=== PATIENT | female | born 1935 | race Caucasian/White ===

== ENCOUNTER 2016-10-16 07:23 | Outpatient (CLI) | payer MEDICARE ==
[~2016-10-16] VITALS: Ht 152.4 cm; Wt 62.7 kg
--- NOTE | ~2016-10-16 | HEMODYNAMI ---
PATIENT:CON ANN MEDICAL RECORD: [id number] : 37 LOCATION:[facility] ADMISSION DATE: 10/16/16 Generatedon:10/16/201610:50 Patient name: CON ANN Patient #: [id number] : 1935 Date of study: 10/16/2016 Page: Of Hemodynamic Procedure Report Patient Data Patient Demographics Procedure consent was obtained First Name: CON Gender: Female Last Name: SETH : 1935 Patient #: [id number] Age: 81 year(s) Race: SSN: [id number] Additional ID: [id number] Contact details Address: [facility] State: [place] City: [place] Zip code: [address] Admission Admission Data Admission Date: 10/16/2016 Admission Time: 7:23 Arrival Date: 10/16/2016 Arrival Time: 10:00 Admit Source: Other Insurance Payor: Medicare Height (in.): 6 BSA: 0.3 (m2) Height (cm.): 15.24 BMI: 2714.63 (kg/m2) Weight (lbs.): 139 Weight (kg.): 63.05 Lab Results Lab Result Date: 10/16/2016 Lab Result Time: 0:00 Biochemistry Name Units Result Min Max BUN mg/dl 35 --(----)-* 7 18 Creatinine mg/dl 1.5 --(----)-* 0.6 1.3 CBC Name Units Result Min Max Hemoglobin g/dl 13.1 -*(----)-- 13.5 17.5 Procedure Procedure Types Cath Procedure Diagnostic Procedure [facility] w/Coronaries w/Grafts FFR/IVUS Intra-Coronary IVUS Initial Miscellaneous Procedures Moderate Sedation up to 45 minutes Procedure Description Procedure Date Procedure Date: 10/16/2016 Procedure Start Time: 10:26 Procedure End Time: 10:46 Procedure Staff Name Function Washington Calle MD Performing Physician Belia Vazquez RT Scrub Julius Leblanc RN Nurse Day Hendricks RT Monitor Indication Cardiomyopathy Procedure Data Cath Procedure Fluoroscopy Diagnostic fluoroscopy Total fluoroscopy Time: 5.7 time: 5.7 min min Diagnostic fluoroscopy Total fluoroscopy dose: 784 dose: 784 mGy mGy Contrast Material Contrast Material Type Amount (ml) Isovue 370 112 Entry Location Entry Primary Successful Side Size Upsize Upsize Entry Closure Succes sful Closure Location (Fr) 1 (Fr) 2 (Fr) Remarks Device Remarks Femoral Right 5 Fr 6 Fr Exoseal artery Short Estimated blood loss: 5 ml Diagnostic catheters Device Type Used For End Catheter Placement Cordis 5Fr Pigtail LV Angiography Catheter (MP) Cordis 5Fr JL 4.0 Left Coronary Catheter (MP) Angiography Cordis 5Fr 3DRC Catheter Right Coronary (MP) Angiography Diagnostic Infinity 5Fr Multi-vessel AR 2 MOD catheter Angiography Procedure Complications No complications Procedure Medications Medication Administration Route Dosage Oxygen NC 2 l/min Lidocaine 2% added to field 20 Heparin Flush Bag added to field 2 bags (1000units/500ml NS) 0.9% NaCl I.V. 100 ml/hr Versed I.V. 1 mg Fentanyl I.V. 50 mcg Versed I.V. 1 mg Fentanyl I.V. 50 mcg Heparin Bolus I.V. 4000 units Integrilin (Bolus I.V. 5.6 ml 2mg/ml) Plavix P.O. 600 mg Hemodynamics Rest BSA: 0.3 (m2) HGB: 13.1 (g/dl) O2 Consumption: Estimated: 24.49 (ml/min) O2 Cons umption indexed: Estimated:81.63 (ml/min/m) Heart Rate: 48 (bpm) Pressure Samples Time Site Value (mmHg) Purpose Heart Use Rate(bpm) 10:29 LV 74/9,11 Snapshot 70 Snapshots Pre Cath Intra NCS Post Cath Vital Signs Time Heart Resp SPO2 NIBP (mmHg) Rhythm Pain Sedation Rate (ipm) (%) Status Level (bpm) 9:46:48 73 16 97 182/80(134) NSR 0 (11) 10(A) , No pain 9:51:21 69 16 100 174/77(132) NSR 0 (11) 10(A) , No pain 9:55:49 69 18 100 167/72(131) NSR 0 (11) 10(A) , No pain 10:00:19 69 18 100 169/72(125) NSR 0 (11) 10(A) , No pain 10:04:41 69 19 96 157/75(121) NSR 0 (11) 10(A) , No pain 10:09:10 69 20 98 155/62(124) NSR 0 (11) 10(A) , No pain 10:13:36 69 18 99 158/64(113) NSR 0 (11) 10(A) , No pain 10:17:56 69 16 97 146/64(114) NSR 0 (11) 9(A) , No pain 10:22:19 69 17 94 130/60(107) NSR 0 (11) 9(A) , No pain 10:27:26 84 16 97 132/55(94) NSR 0 (11) 9(A) , No pain 10:31:48 69 16 95 132/59(95) NSR 0 (11) 9(A) , No pain 10:36:06 69 16 95 123/52(96) NSR 0 (11) 9(A) , No pain 10:40:18 69 17 94 110/45(82) NSR 0 (11) 9(A) , No pain 10:44:38 69 16 98 109/44(77) NSR 0 (11) 9(A) , No pain 10:48:56 69 16 94 107/44(83) NSR 0 (11) 10(A) , No pain Medications Time Medication Route Dose Verified Delivered Reason Notes Effectiveness by by 9:48:32 Oxygen NC 2 [place] used for l/min uLc Leblanc RN procedure 9:48:38 Lidocaine 2% added 20ml [place] for local to vial Luc Calle MD anesthetic field 9:48:45 Heparin Flush added 2 [place]arosa used for Bag to bags Luc Calle MD procedure (1000units/500ml field NS) 9:48:55 0.9% NaCl I.V. 100 [place] Gallardoie Per physician ml/hr Luc Leblanc RN 10:11:39 Versed I.V. 1 mg [place] for sedation Luc Leblanc RN 10:11:45 Fentanyl I.V. 50 [place]ie for sedation mcg Luc Leblanc RN 10:27:54 Versed I.V. 1 mg [place] for sedation Luc Leblanc RN 10:27:59 Fentanyl I.V. 50 [place] for sedation mcg Luc Leblanc RN 10:35:18 Heparin Bolus I.V. 4000 [place] for verifi ed units Luc Leblanc RN anticoagulation with dr calle 10:43:32 Integrilin I.V. 5.6 [place] for Wasted (Bolus 2mg/ml) ml Luc Leblanc RN antiplatelet 4.4 ml therapy of vial 10:49:09 Plavix P.O. 600 [place] for mg Luc Leblanc RN antiplatelet therapy Procedure Log Time Note 9:32:26 Patient Height : 15.24 cm 9:32:31 Patient Weight : 63.05 kg 9:32:32 Admit Source: Other 9:32:36 Arrival Date: 10/16/2016 10:00:00 AM 9:32:42 Insurance Payor : Medicare 9:33:36 Diagnostic Cath Status : Elective 9:35:47 Lab Result : Creatinine 1.5 mg/dl 9:35:47 Lab Result : BUN 35 mg/dl 9:35:47 Lab Result : Hemoglobin 13.1 g/dl 9:35:54 Day Hendricks RT(R) sent for patient. Start room use. 9:35:56 Time tracking: Regular hours 9:36:01 Plan of Care:Hemodynamics will remain stable., Cardiac rhythm will remain stable., Comfort level will be maintained., Respiratory function will remain adequate., Patient/ family verbilizes understanding of procedure., Procedure tolerated without complication., Recovers from procedure without complications.. 9:36:08 Use device set Femoral Dx 9:36:11 Acist Syringe opened to sterile field. 9:36:11 Bag Decanter opened to sterile field. 9:36:11 Medline Cath Pack opened to sterile field. 9:36:12 Terumo 5Fr [place] Sheath opened to sterile field. 9:36:12 St Adam 260cm J .035 wire opened to sterile field. 9:36:14 Acist Hand Control opened to sterile field. 9:36:14 Acist Manifold opened to sterile field. 9:36:15 Diagnostic Infinity 5Fr Multipack catheter opened to sterile field. 9:36:16 Tegaderm 4 x 4 opened to sterile field. 9:39:52 Patient received from Pre/Post Procedure Room to CCL 2 Alert and oriented. Tansferred to table in Supine position. 9:39:54 Warm blankets applied, and mu hugger turned on for patient comfort. 9:39:54 Correct patient and procedure confirmed by team. 9:39:56 Signed procedure consent form obtained from patient. 9:39:56 ECG and BP/O2 sat monitors applied to patient. 9:39:58 Full Disclosure recording started 9:43:44 H&P Date Dictated: 10/10/2016 Within 30 days and on chart., H&P Addendum completed by physician on day of procedure. (MUST COMPLETE FOR ALL OUTPATIENTS). 9:43:47 Pre-procedure instructions explained to patient. 9:43:48 Family in waiting room. 9:43:55 Is the patient allergic to Iodine/contrast media? No. 9:44:02 Is patient on blood thinner?No 9:44:07 Patient diabetic? Yes. 9:44:08 If diabetic: On Metformin? No 9:44:14 Snore? Yes 9:44:17 Sleep apnea? No 9:44:19 Sticks out tongue? Yes 9:44:25 Dentures? Yes in tight 9:44:30 Previous problem with sedation/anesthesia? No ? 9:44:40 Patient pain scale 0/10 ?. 9:44:51 IV patent on arrival in left forearm with 0.9% NaCl at KVO. 9:44:59 Lab results completed and on chart. 9:45:23 Vital chart was started 9:45:54 Baseline sample Acquired. 9:46:04 Right groin area was prepped with chlora-prep and draped in sterile fashion 9:46:08 Alarms reviewed by R. N. 9:46:09 Sharps counted by scrub and verified by R.N. 9:46:09 Physician paged 9:46:20 Baseline sample Acquired. 9:48:22 Baseline sample Acquired. 9:48:27 Rhythm: sinus rhythm 9:48:32 Oxygen 2 l/min NC was administered by Julius Leblanc RN; used for procedure; 9:48:34 Deviated septum? No 9:48:35 Opens mouth fully? Yes 9:48:37 Airway obstruction? No ? 9:48:38 Lidocaine 2% 20ml vial added to field was administered by Washington Calle MD; for local anesthetic; 9:48:41 Pre procedure: right dorsailis pedis pulse 1+ Palpable, but thready & weak; easily obliterated 9:48:45 Heparin Flush Bag (1000units/500ml NS) 2 bags added to field was administered by Washington Calle MD; used for procedure; 9:48:55 0.9% NaCl 100 ml/hr I.V. was administered by Julius Leblanc RN; Per physician; 9:55:53 Indication : Cardiomyopathy 10::46 Physician arrived 10::47 --------ALL STOP TIME OUT------ ::48 Final Timeout: patient, procedure, and site verified with staff and physician. All members of the team are in agreement. 10::50 Right groin site verified by team. 10::54 Physical assessment completed. ASA score P 2 - A patient with mild systemic disease as per Washington Calle MD. 10::58 Sedation plan: IV Moderate Sedation Versed, Fentanyl 10::39 Versed 1 mg I.V. was administered by Julius Leblanc RN; for sedation; 10::45 Fentanyl 50 mcg I.V. was administered by Julius Leblanc RN; for sedation; 10::26 Procedure started. 10::29 Local anesthetic to right femoral artery with Lidocaine 2% by Washington Calle MD.INITIAL ACCESS ONLY 10:26:40 A 5 Fr sheath was inserted into the Right Femoral artery 10::54 Versed 1 mg I.V. was administered by Julius Leblanc RN; for sedation; 10::59 Fentanyl 50 mcg I.V. was administered by Julius Leblanc RN; for sedation; 10:28:02 A Cordis 5Fr Pigtail Catheter (MP) was advanced over the wire and used for LV Angiography. 10::06 Zero performed for pressure channel P1 10::36 LV hemodynamics recorded. 10::37 LV gram done using KHAN 10::40 Injector settings: Ml/sec: 5, Volume: 15, 10::46 EF : 55 % 10::50 Catheter removed. 10::57 A Cordis 5Fr JL 4.0 Catheter (MP) was advanced over the wire and used for Left Coronary Angiography. 10:30:40 LCA angiography performed. 10:30:44 Injector settings: Ml/sec: 3, Volume: 6, 10:31:19 Catheter removed. 10:31:26 A Cordis 5Fr 3DRC Catheter (MP) was advanced over the wire and used for Right Coronary Angiography. 10:31:54 [place] Bill Moore'S Slough [place] IVUS Catheter opened to sterile field. 10:31:54 Acosta Whisper J 300cm 0.014 guide wire opened to sterile field. 10:31:55 Merit BasixCompak Inflation Kit opened to sterile field. 10:31:56 Terumo 6Fr [place] Sheath opened to sterile field. 10:32:15 RCA angiography performed. 10:32:18 Injector settings: Ml/sec: 3, Volume: 6, 10:32:35 ORR to LAD angiography performed. 10:32:49 Catheter removed. 10:32:57 A Diagnostic Infinity 5Fr AR 2 MOD catheter was advanced over the wire and used for Multi-vessel Angiography. 10:33:17 SVG to Circ angiography performed. 10:33:38 SVG to RCA angiography performed. 10:33:54 Catheter removed. 10:33:56 Cordis 6FR XBLAD 3.5 guide catheter opened to sterile field. 10:34:01 Proceeding to intervention. 10:34:08 Sheath upsized to a 6 Fr Short. 10:34:54 6 Fr xblad 3.5 guide catheter was inserted over the wire 10:35:18 Heparin Bolus 4000 units I.V. was administered by Julius Leblanc RN; for anticoagulation; verified with dr calle 10:35:23 whisper wire advanced. 10:38:06 Wire removed. 10:38:19 [employer] Choice PT Extra Support J 300cm .014 gu opened to sterile field. 10:38:57 choice pt wire advanced. 10:39:00 Wire advanced across lesion. 10:39:28 IVUS catheter advanced over wire. 10:42:27 IVUS pass to LAD lesion performed. 10:42:28 IVUS catheter removed over wire. 10:43:32 Integrilin (Bolus 2mg/ml) 5.6 ml I.V. was administered by Julius Leblanc RN; for antiplatelet therapy; Wasted 4.4 ml of vial 10:43:38 Inflation Number: 1 A Medtronic Integrity 3.0 X 22 stent was prepped and advanced across the Prox LAD. The stent was deployed at 13 SASHA for 0:10 (min:sec). 10:43:56 Stent catheter was removed intact over wire. 10:43:57 Wire removed. 10:43:57 Guide catheter removed. 10:44:09 Cordis 6Fr Exoseal opened to sterile field. 10:44:18 Sheath removed intact; hemostasis achieved with Exoseal to the Right Femoral artery. 10:44:20 Procedure ended.(Physican Out) 10:45:24 Fluoroscopy time 05.70 minutes. 10:45:28 Fluoroscopy dose: 784 mGy 10:45:28 Flurop Dose total: 784 10:45:32 Contrast amount:Isovue 370 112ml. 10:45:33 Sharps counted by scrub and verified by R.N. 10:45:36 Insertion/operative site no bleeding no hematoma. 10:45:38 Post-op/insertion site Right Femoral artery dressed using a 4 x 4 and Tegaderm. 10:45:41 Post right femoral artery:stable 10:45:42 Post Procedure Pulses reassessed and unchanged 10:45:44 Post procedure rhythm: unchanged. 10:45:47 Estimated blood loss: 5 ml 10:45:49 Post procedure instruction explained to patient.Patient verbalizes understanding. 10:45:49 Patient needs reinforcement of post procedure teaching. 10:46:27 Procedure type changed to Cath procedure, Diagnostic procedure, LHC, LHC w/Coronaries w/Grafts, FFR/IVUS, Intra-Coronary IVUS Initial, Miscellaneous Procedures, Moderate Sedation up to 45 minutes 10:46:30 Procedure and supply charges have been captured, reviewed, submitted and are correct. 10:46:34 Procedure Complication : No complications 10:46:36 Vital chart was stopped 10:46:36 See physician's report for complete and final results. 10:46:39 Report given to Pre/Post Procedure Room. 10:46:42 Patient transfered to Pre/Post Procedure Room with Stretcher. 10:46:44 Procedure ended. 10:46:44 Full Disclosure recording stopped 10:46:52 ACC-PCI Only Patient was given prescriptions, or instructed by Washington Calle MD to start/continue the following medications upon discharge: Plavix 10:46:53 End room use (Document Last) 10:49:09 Plavix 600 mg P.O. was administered by Julius Leblanc RN; for antiplatelet therapy; Intervention Summary Intervention Notes Time ActionType Lesion and Equipment Action# Pressure Duration Attributes Used 10:43:[address] Place stent Prox LAD Medtronic 1 13 00:10 Integrity 3.0 X 22 stent Device Usage Item Name Manufacture Quantity Catalog Number Hospital Part Current Minim al Lot# / Charge Number Stock Stock Serial# Code Acist Acist 1 [id number] 103565 618611 221880 20 Syringe Medical Systems Inc Bag Microtek 1 [id number] 567098 95633 414047 5 Decanter Medical Inc. Medline Cardinal 1 [id number] 852888 31294 362717 5 Cath Pack Health Terumo 5Fr Terumo 1 [id number] 505680 727983 584785 [address] Adam 1 [id number] 028005 785339 311505 30 260cm J .035 wire Acist Hand Acist 1 98713 912955 072806 319220 5 Control Medical Systems Inc Acist Acist 1 69096 562671 230543 122302 5 Manifold Medical Systems Inc Diagnostic Cardinal 1 [id number] 432913 45798 439032 30 Infinity Health 5Fr Multipack catheter Tegaderm 4 3M 1 1626W 956114 134664 021787 5 x 4 Cordis 5Fr Cardinal 1 678401 5 Pigtail Health Catheter (MP) Cordis 5Fr Cardinal 1 212602 5 JL 4.0 Health Catheter (MP) Cordis 5Fr Cardinal 1 902686 5 3DRC Health Catheter (MP) [place] 1 [id number] 740002 797391 340415 8 Bill Moore'S Slough [place] IVUS Catheter Acosta Acosta 1 [id number] 716918 561355 871244 5 Whisper J Vascular 300cm 0.014 guide wire Merit Merit 1 [id number] 814825 993626 304135 15 OrthAlign Medical Inflation Kit Terumo 6Fr Terumo 1 [id number] 846414 833419 922436 40 [place] Sheath Diagnostic Cardinal 1 [id number] 032130 365237 321256 20 Infinity Health 5Fr AR 2 MOD catheter Cordis 6FR Cardinal 1 [id number] 392999 307976 770023 10 XBLAD 3.5 Health guide catheter Eureka Sci Eureka 1 [id number] 163887 353696 558561 5 Choice PT Scientific Extra Support J 300cm .014 gu Medtronic Medtronic 1 [id number] 889220 144986 377056 8 [id number] Integrity 3.0 X 22 stent Cordis 6Fr Cardinal 1 [id number] 687157 489576 084914 10 [facility] Signature Audit [place] Stage Time Signature Unsigned Intra-Procedure 10/16/2016 Day Hendricks 10:50:42 AM RT(R) Signatures Monitor : Day Hendricks RT Signature : Date : Time : [address] [address]
--- NOTE | ~2016-10-16 | OP ---
PATIENT NAME: CON ANN MEDICAL RECORD: [id number] :37 LOCATION:D.CAT ADMISSION DATE: SURGEON: ROJELIO CERNA MD DATE OF OPERATION: 10/16/2016 PROCEDURES: 1. PTCA stent LAD. 2. Intravascular ultrasound of the LAD. 3. Left heart catheterization. 4. Selective coronary angiography. 5. Vein graft angiography. 6. Left ventriculogram. INDICATION: Angina and coronary artery disease. PROCEDURE: After informed consent was obtained and after detailed explanation of risks, benefits as well as alternative therapies, the patient elected to proceed with angiogram and angioplasty. The right femoral area was prepped and draped in normal sterile fashion. Right femoral artery was cannulated via modified Seldinger technique with placement of 6-Welsh sheath. All catheters exchanged through this sheath. FINDINGS: The left ventriculogram was performed in standard 30-degree KHAN view, reveals good cardiac wall motion, ejection fraction 50% to 55%. SELECTIVE CORONARY ANGIOGRAPHY: 1. Left main showed no significant angiographic disease. 2. Left anterior descending has a 75% stenosis confirmed by intravascular ultrasound proximally, this is not grafted. 3. Left circumflex has 100% stenosis in the mid vessel. 4. Vein graft to the circumflex is widely patent. 5. Right coronary has 100% stenosis in the mid vessel. 6. Vein graft to the right coronary is widely patent. PTCA STENT OF THE LAD: The stent used is a 3.0 x 22 mm Integrity. Result was 0% residual stenosis. OVERALL IMPRESSION: Successful percutaneous transluminal coronary angioplasty stent of the left anterior descending going from 75% initial stenosis confirmed by intravascular ultrasound to 0% residual stenosis. TRANSINT:[id number] Voice Confirmation ID: [id number] DOCUMENT ID: [id number] ROJELIO CERNA MD CC: [id number] DICTATION DATE: 10/16/16 1050 HEALTH CARE ATTORNEY: 10/16/16 1745 [facility] CLI 10/16/16 [place] [id number]
[2016-10-16] MEDS ORDERED: METOPROLOL TART50 MG PO (08:24)
[2016-10-16] MEDS ORDERED: ZESTORETIC 20-1 EACH PO (08:25)
[2016-10-16] MEDS ORDERED: ZOCOR80 MG PO (08:25)
[2016-10-16] MEDS ORDERED: ISOSORBIDE DINI30 MG PO (08:26)
[2016-10-16] MEDS ORDERED: NOVOLOG100 U/M1 SC (08:27)
[2016-10-16] MEDS ORDERED: LANTUS INSULIN10 ML SC (08:27)
[2016-10-16] MEDS ORDERED: BAYER CHEWABLE81 MG PO (08:28)
[2016-10-16 08:30] VITALS: BP 144/65; Ht 152.4 cm; Wt 62.7 kg
[2016-10-16 08:38] LABS: HEMOGLOBIN 13.1 g/dL (12-16); LYMPHOCYTES 26.7 % (15-50); MCH 34.3 pg (26.0-34.0); MCHC 34.5 g/dL (31.0-37.0); MCV 99.5 fL (80.0-100.0); NEUTROPHILS 62.5 % (40-80); PLATELET COUNT 153 10x3/uL (130-400); RBC 3.82 10x6/uL (4.00-5.40); WBC 5.6 10x3/uL (4.8-10.8)
[2016-10-16 08:55] LABS: ANION GAP 12.9 mmol/L (8-16); CALCIUM 8.8 mg/dL (8.5-10.1); CARBON DIOXIDE 24.7 mmol/L (21.0-32.0); CREATININE - SERUM 1.5 mg/dL (0.6-1.3); POTASSIUM - SERUM 4.6 mmol/L (3.5-5.1)
[2016-10-16] MEDS ORDERED: PLAVIX75 MG PO (11:08)
--- NOTE | 2016-10-16 11:20 | NUR ---
RESTING IN BED WITH EYES CLOSED. 2L NC, NO RESP DISTRESS NOTED. VSS. RIGHT GROIN 6F EXOSEAL CDI, NO BLEEDING OR HEMATOMA NOTED. NO C/O CHEST PAIN OR NAUSEA. INSTRUCTED PT TO KEEP HEAD FLAT ON PILLOW AND RIGHT LEG STRAIGHT.
--- NOTE | 2016-10-16 11:50 | NUR ---
2L NC, NO RESP DISTRESS. VSS. NO C/O CHEST PAIN OR NAUSEA. RIGHT GROIN 6F EXOSEAL CDI, NO BLEEDING OR HEMATOMA NOTED. AT BEDSIDE, CALL LIGHT WITHIN REACH.
--- NOTE | 2016-10-16 12:05 | NUR ---
RIGHT GROIN 6F EXO SEAL CDI, NO BLEEDING OR HEMATOMA NOTED. 2L NC, NO RESP DISTRESS NOTED. NO C/O CHEST PAIN OR NAUSEA. WILL CONTINUE TO MONITOR.
--- NOTE | 2016-10-16 12:35 | NUR ---
QUIETLY RESTING. VSS. 2L NC, NO RESP DISTRESS NOTED. RIGHT GROIN CDI, NO BLEEDING OR HEMATOMA. NO C/O CHEST PAIN OR NAUSEA.
--- NOTE | 2016-10-16 13:05 | NUR ---
WATER AND SANDWICH TRAY GIVEN. NO C/O NAUSEA. RIGHT GROIN CDI, NO BLEEDING OR HEMATOMA NOTED. CALL LIGHT WITHIN REACH.
--- NOTE | 2016-10-16 14:05 | NUR ---
2L NC, NO RESP DISTRESS NOTED. RIGHT GROIN CDI, NO BLEEDING OR HEMATOMA NOTED. VSS. NO C/O CHEST PAIN OR NAUSEA. WILL CONTINUE TO MONITOR.
--- NOTE | 2016-10-16 14:24 | NUR ---
VOIDED 150CC OF CLEAR YELLOW URINE. HOB ELEVATED 30 DEGREES. RIGHT GROIN CDI, NO BLEEDING OR HEMATOMA NOTED.
--- NOTE | 2016-10-16 14:38 | NUR ---
LEFT FA PIV D/C'D WITH CATHETER INTACT, BAND AID TO SITE. UP TO BEDSIDE TO GET DRESSED.
--- NOTE | 2016-10-16 14:44 | NUR ---
PATIENT UP TO GET DRESSED WITH ASSIST. VERBAL AND WRITTEN DISCHARGE GONE OVER WITH PATIENT AND FAMILY. LEFT VIA WC TO PARKING FOR FAMILY TO TRANSPORT HOME CHEST PAIN DENIED R/GROIN CDI
== END 2016-10-16 14:46 | disposition home or self-care (01) ==
LOC: D.CATH 07:23
PROVIDERS: Internal Medicine Interventional Cardiology
DX: I25.119 Atherosclerotic heart disease of native coronary artery with unspecified angina pectoris (principal); Z95.1 Presence of aortocoronary bypass graft

== ENCOUNTER 2016-12-11 06:32 | Day surgery (SDC) | payer MEDICARE ==
[~2016-12-11] VITALS: Ht 152.4 cm; Wt 63.0 kg
[~2016-12-11 06:32] MED LIST: BAYER CHEWABLE81 MG PO; ISOSORBIDE DINI30 MG PO; LANTUS INSULIN10 ML SC; METOPROLOL TART50 MG PO; NOVOLOG100 U/M1 SC; PLAVIX75 MG PO; ZESTORETIC 20-1 EACH PO; ZOCOR80 MG PO
[2016-12-11 07:35] LABS: HEMATOCRIT 39.2 % (36.0-48.0); HEMOGLOBIN 13.1 g/dL (12-16); MCH 34.5 pg (26.0-34.0); MCHC 33.4 g/dL (31.0-37.0); MCV 103.2 fL (80.0-100.0); MEAN PLATELET VOLUME 9.9 fL (7.4-10.4); RBC 3.8 10x6/uL (4.00-5.40); RDW 12.7 % (11.5-14.5); WBC 5.3 10x3/uL (4.8-10.8)
[2016-12-11 07:44] LABS: INR 1.03 (0.85-1.17); PROTIME 13.4 SECONDS (11.6-15.0)
[2016-12-11 07:47] LABS: ANION GAP 13.1 mmol/L (8-16); CALCIUM 9.1 mg/dL (8.5-10.1); CARBON DIOXIDE 24.3 mmol/L (21.0-32.0); CREATININE - SERUM 1.5 mg/dL (0.6-1.3); POTASSIUM - SERUM 4.4 mmol/L (3.5-5.1)
[2016-12-11] MEDS ORDERED: LIPITOR80 MG PO (08:18)
[2016-12-11] MEDS ORDERED: TOPROL XL50 MG PO (08:20)
[2016-12-11] MEDS ORDERED: ISOSORBIDE MONO30 M1 PO (08:21)
[2016-12-11] MEDS ORDERED: PLAVIX75 MG PO (08:22)
[2016-12-11] MEDS ORDERED: ZESTORETIC 20-1 EACH PO (08:22)
[2016-12-11] MEDS ORDERED: LANTUS INSULIN10 ML SC (08:23)
[2016-12-11] MEDS ORDERED: NOVOLOG100 U/M1 SC (08:25)
[2016-12-11 09:03] VITALS: BP 157/66; Ht 152.4 cm; Wt 63.0 kg
--- NOTE | 2016-12-11 09:57 | NUR ---
0955 TELEMETRY APPLIED TO PATIENT. FIONA [facility] TELEMETRY SHOWS SINUS RHYTHM, RATE 69. A. BALTAZAR Lee
--- NOTE | 2016-12-15 13:32 | HP ---
PATIENT: CON ANN MEDICAL RECORD: [id number] ACCOUNT: [id number] LOCATION:D.OPS : 36 ADMISSION DATE: 12/11/16 HISTORY AND PHYSICAL EXAMINATION CON Ledezma (81yo, F) ID# [id number]. Date/Time11/29/2016 01:23FJKPC29 1935[facility] Dept.[facility] ClinicProviderEMILY DIGGS MDInsuranceMed Primary: [employer] (MEDICARE REPLACEMENT/ADVANTAGE - HMO) Insurance # : [id number] Referring Provider Name : RANDA RODAS Employer Name : RETIRED Prescription: CMX - Member is eligible. Prescription: [facility] - Member is eligible. Chief Complaint pulse generator end-of-life Patient's Care Team Referring Provider (): RANDA RODAS: [address] [place] [phone], , Referring Provider: ROJELIO CERNA MD: [address] [place] [phone], , Patient's Pharmacies [id number] ([facility]): [address] [facility] [id number], , Vitals BP:140/80 sitting R arm 11/29/2016 01:09 pm 130/70 sitting L arm 11/29/2016 01:09 pmHR:88irreg 11/29/2016 01:10 pmHt:5 ft 11/29/2016 01:09 pmWt:139 lbs 11/29/2016 01:06 pmBMI:27.1 11/29/2016 01:09 pmAllergies Reviewed Allergies LISINOPRILMETRONIDAZOLEPENICILLINSSULFA (SULFONAMIDE ANTIBIOTICS)Medications Reviewed Medications Accu-Chek Softclix Lancing Device+Lancets kit09/28/16 filledCaremarkAlcohol Prep Pads11/02/16 filledCaremarkatorvastatin 80 mg /02/17 filledCaremarkciprofloxacin 250 mg wsalhh03/15/17 filledCaremarkclopidogrel 75 mg gpcauh17/03/17 filledCaremarkComfort EZ Syringe 0.5 mL 31 gauge x 5/16"11/02/16 filledCaremarkDebrox 6.5 % ear drops PLACE 5 DROPS IN BOTH EARS BID FOR 5 DAYS04/25/16 filledsurescriptsEmbrace Lancets 30 gauge09/28/16 filledCaremarkisosorbide mononitrate ER 30 mg tablet,extended release 24 hr10/19/16 filledCaremarkLantus 100 unit/mL subcutaneous gmrqicwb23/03/17 filledCaremarklisinopril 20 mg-hydrochlorothiazide 12.5 mg /13/17 filledCaremarkmetoprolol succinate ER 50 mg tablet,extended release 24 hr10/19/16 filledCaremarknitrofurantoin monohydrate/macrocrystals 100 mg yxhmimj28/16/17 filledCaremarkNovoLOG 100 unit/mL subcutaneous masqfoap98/03/17 filledCaremarkOneTouch Verio aqdxow08/24/17 filledCaremarkTRUEplus Insulin 0.3 mL 31 gauge x 5/16" /03/17 filledCaremarkProblems Reviewed Problems Sick sinus syndrome - Onset: 11/23/2016 Automatic implantable cardiac defibrillator in situ - Onset: 11/23/2016 Family History Discussed Family History Father- Heart diseaseSocial History Discussed Social History Cardiology HISTORY AND PHYSICAL [id number] CON ANN Family history of heart disease?: Y Smoking Status: Never smoker High Cholesterol: Y High blood pressure: Y Diabetes: Y Alcohol intake: None Surgical History Reviewed Surgical History Other - defibrillator medtronic Other - PTCA/stent CABG 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 HPI Dysrhythmia Reported by patient. Symptoms: AICD generator exchange Frequency: seldom Limitations: mild automatic implantable cardio defibrillator at end of life ROS Patient reports exercise intolerance but reports no fever, no night sweats, no significant weight gain, and no significant weight loss. She reports shortness of breath when walking but reports no chest pain, no arm pain on exertion, no shortness of breath when lying down, no palpitations, and no known heart murmur. She reports shortness of breath but reports no cough, no wheezing, and no coughing up blood. She reports muscle aches, arthralgias/joint pain, and swelling in the extremities but reports no muscle weakness and no back pain. Sh e reports no dry eyes, no irritation, and no vision change. She reports no difficulty hearing and no ear pain. She reports no frequent nosebleeds and no nose/sinus problems. She reports no sore throat, no bleeding gums, no snoring, no dry mouth, no mouth u lcers, no oral abnormalities, and no teeth problems. She reports no jugular vein distension and no swollen glands. She reports no abdominal pain, no vomiting, normal appetite, no diarrhea, not vomiting blood, no nausea, and no constipation. She reports no incontinence, no difficulty urinating, no hematuria, and no increased frequency. She reports no abnormal mole, no jaundice, and no rashes. She reports no loss of consciousness, no weakness, no numbness, no seizures, no dizziness, and no headaches. She rep o rts no depression, no sleep disturbances, feeling safe in relationship, and no alcohol abuse. She reports no fatigue. She reports no swollen glands and no bruising. She reports no runny nose, no sinus pressure, no itching, no HISTORY AND PHYSICAL [id number] WALKER,CON hives, and no frequent sneezi ng. ROS as noted in the HPI Physical Exam Patient is an 81-year-old female. Constitutional: General Appearance healthy-appearing, well developed, and overweight. Level of Distress chronically ill. Ambulation ambulating normally. Cardiovascular: Apical Impulse not displaced or no thrill. Heart Auscultation normal s1 and s2; no murmurs, rubs, or gallops; and RRR; normal sinus rhythm. Neck Vessels automatic implantable cardio defibrillator in situ. Arterial Pulses no abdominal aorta bruits, femoral bruits, o r popliteal bruits and 2+ bilateral, carotid 2+ bilateral, femoral 2+ bilateral, popliteal 2+ bilateral, and dorsalis pedis 2+ bilateral. Edema no edema or varicosities. Lungs: Repiratory Effort no dyspnea. Percussion no hyperresonance or dullness or flatness. Auscultation no wheezing, rhonchi, or rales / crackles and breathing sounds normal, good air movement, and CTA except as noted. Abdomen: Bowl Sounds normal. Inspection and Palpation no tenderness, guarding, flori s, or rebound tenderness and soft and non-distended. Liver non-tender and no hepatomegaly. Spleen non-tender and no splenomegaly. Hernia none palpable. Musculoskeletal System: Gait And Stance normal gait and stance. Digits and Nails normal nails and no cyanosis. Joints, Bones, and Muscles limited ROM and abnormal strength. Neurologic: Cranial Nerves grossly intact. Reflexes DTRs 2+ bilaterally throughout. Sensation grossly intact. Lymph Nodes: Lymph Nodes no cervical LAD, supraclavicular LAD, axillary LAD, or inguinal LAD. Eyes: Lids and Conjunctivae no discharge or pallor and non-injected. Pupils PERRLA. Cornea grossly intact. EOM EOMI. Lens clear. Sclera non-icteric. Neck: Neck no masses, enlarged lymph nodes, or carotid bruits and supple and trachea midline. Thyroid no enlargement or nodules and non-tender. Skin: Inspection and Palpation no rash, lesions, ulcers, jaundice, or abnormal nevi. Assessment / Plan sick sinus syndrome Cardiomyopathy Pulse generator end-of-life 1. Sick sinus syndrome I49.5: Sick sinus syndrome 2. Automatic implantable cardiac defibrillator in situ Z95.810: Presence of automatic (implantable) cardiac defibrillator Discussion Notes I have discussed her disease process with her and her family in detail as well as the alternative methods of treatment. We discussed automatic implantable cardio defibrillator exchange including the expected benefits and risks which include HISTORY AND PHYSICAL [id number] WALKER,CON bleeding, infection, stroke, loss o f limb, and , and the imponderables. There is also a chance lead revision She and her family understand all of the above and wish to proceed with planned procedure EMILY DIGGS MD at 1332 CC: [id number] DICTATION DATE: 11/29/16 1314 LEAD MECHANIC: DM 12/07/16 5202 [facility] 12/11/16 [place] [address] [place] [address]
--- NOTE | 2016-12-15 13:32 | OP ---
PATIENT NAME: CON ANN MEDICAL RECORD: [id number] :36 LOCATION:[facility] ADMISSION DATE: SURGEON: EMILY STARK MD DATE OF OPERATION: 12/11/2016 SURGEON: Emily Stark MD ANESTHESIA: General, Dr. Grover. OPERATION PERFORMED: AICD pulse generator exchange. PREOPERATIVE DIAGNOSIS: Cardiomyopathy. POSTOPERATIVE DIAGNOSIS: Cardiomyopathy. INDICATION FOR OPERATION: Pulse generator end of life. FINDINGS OF THE OPERATION: The explanted generator Medtronic model number [id number], serial number [id number]. Explanted lead Medtronic model number [id number], serial number [id number]. ESTIMATED BLOOD LOSS: Less than 5 cc. DESCRIPTION OF PROCEDURE: After informed consent, adequate preoperative medication evaluation, the patient was brought to the operating room, placed on the table in the supine position. After induction of general anesthesia and application of appropriate monitoring devices, the left chest prepped and draped in a sterile field, utilizing Betadine scrub, alcohol, and Betadine solution. A Betadine-impregnated drape was also used, 1% lidocaine was infiltrated over the device as well as in the pocket incision made and dissection carried down the pocket. The pocket was opened and expanded. The device was removed. The pocket was enlarged medially and inferiorly to accept the new device. Hemostasis was assured. The leads were then exchanged to the new device and the explanted device removed from the field. The device underwent analysis with the right atrial lead, P-wave 2.8, impedance 532 ohms, threshold 0.7 volts. Ventricular lead, R-wave 18.2, resistance 684 ohms, HVB impedance 46, HZX impedance 62, pacing threshold 0.5 volts. Left ventricular lead impedance 1142 ohms, pacing threshold 1.5. Hemostasis was assured. The wound was irrigated with copious amounts of antibiotic solution and normal saline. The device and leads were placed back in the pocket and the instrument count and sponge count were correct times 2. Pocket was closed in layers utilizing 3-0 Vicryl on deep subcutaneous tissue, 5-0 subcuticular Monocryl on the skin, sterile dressings were applied. The patient tolerated the procedure well and was transferred to postanesthesia recovery in satisfactory condition with the device dectection and therapy turned on. TRANSINT:[id number] Voice Confirmation ID: [id number] DOCUMENT ID: [id number] OPERATIVE REPORT [id number] CON ANN EDWARD MD at 1332 CC: [id number] DICTATION DATE: 12/11/16 1257 AMMUNITION ASSEMBLY I LABORER: 12/11/16 2234 [facility] 12/11/16 [place] [id number]
== END 2016-12-11 15:20 | disposition home or self-care (01) ==
LOC: D.OPS 06:32
PROVIDERS: Internal Medicine Cardiovascular Disease
DX: Z45.02 Encounter for adjustment and management of automatic implantable cardiac defibrillator (principal); I42.9 Cardiomyopathy, unspecified; I49.5 Sick sinus syndrome; E78.00 Pure hypercholesterolemia, unspecified; I10 Essential (primary) hypertension; E11.9 Type 2 diabetes mellitus without complications; Z82.49 Family history of ischemic heart disease and other diseases of the circulatory system; Z95.1 Presence of aortocoronary bypass graft; I25.10 Atherosclerotic heart disease of native coronary artery without angina pectoris

== ENCOUNTER 2017-04-30 10:39 | Outpatient (CLI) | payer MEDICARE ==
--- NOTE | ~2017-04-30 | HEMODYNAMI ---
PATIENT:CON ANN MEDICAL RECORD: [id number] : 37 LOCATION:D.CAT ADMISSION DATE: 04/30/17 Generatedon:04/30/201716:09 Patient name: CON ANN Patient #: [id number] : 1935 Date of study: 04/30/2017 Page: Of Hemodynamic Procedure Report Patient Data Patient Demographics Procedure consent was obtained First Name: CON Gender: Female Last Name: SETH : 1935 [facility] Initial: J Age: 81 year(s) Patient #: [id number] Race: SSN: [id number] Additional ID: [id number] Contact details Address: [address] [place] [address] State: [place] City: [place] Zip code: [address] Past Medical History Allergies Allergen Reaction Date Comments Reported Penicillins 04/30/2017 Sulfa drugs 04/30/2017 Admission Admission Data Admission Date: 04/30/2017 Admission Time: 10:39 Procedure Procedure Types Cath Procedure Diagnostic Procedure PPM/ICD Lead Replacement Single Procedure Description Procedure Date Procedure Date: 04/30/2017 Procedure Start Time: 15:58 Procedure End Time: 16:05 Procedure Staff Name Function Hill Henry MD Performing Physician Sherry Mcrae RT Scrub Julius Leblanc RN Nurse Iglesia Rees RT Monitor Tano Amador MD Assisting physician Procedure Data Cath Procedure Fluoroscopy Diagnostic fluoroscopy Total fluoroscopy Time: time: 20.6 min 20.6 min Diagnostic fluoroscopy Total fluoroscopy dose: dose: 311.34 mGy 311.34 mGy Estimated blood loss: 20 ml Procedure Medications Medication Administration Route Dosage Oxygen NC 2 l/min Lidocaine 1% with added to field 20 ml Epi Bupivacaine 0.5% S.Q. 10 ml 0.9% NaCl Vancomycin I.V.P.B 1 g Vancomycin Topical 1 g Irrigation Versed I.V. 1 mg Fentanyl I.V. 50 mcg Versed I.V. 1 mg Fentanyl I.V. 50 mcg Versed I.V. 1 mg Hemodynamics Rest Pre Cath Intra NCS Post Cath Vital Signs Time Heart Resp SPO2 etCO2 NIBP (mmHg) Rhythm Pain Sedation Rate (ipm) (%) (mmHg) Status Level (bpm) 14:23:54 75 17 96 0 207/94(141) Paced 0 (11) 10(A) , No pain 14:28:45 73 18 96 33.8 214/88(145) Paced 0 (11) 10(A) , No pain 14:33:40 78 15 97 35.3 201/91(143) Paced 0 (11) 10(A) , No pain 14:38:31 72 12 98 37.5 213/82(126) Paced 0 (11) 10(A) , No pain 14:44:29 100 18 96 39 184/84(130) Paced 0 (11) 9(A) , No pain 14:49:14 75 39 93 38.3 187/80(127) Paced 0 (11) 9(A) , No pain 14:54:01 82 30 97 38.3 170/76(129) Paced 0 (11) 9(A) , No pain 14:58:41 70 38 98 37.6 180/76(129) Paced 0 (11) 9(A) , No pain 15:03:18 69 18 97 36 178/76(128) Paced 0 (11) 9(A) , No pain 15:07:56 75 17 97 36.8 170/70(121) Paced 0 (11) 9(A) , No pain 15:12:31 73 16 98 35.3 166/76(118) Paced 0 (11) 9(A) , No pain 15:17:03 69 15 96 33.8 155/66(117) Paced 0 (11) 9(A) , No pain 15:21:38 69 14 98 37.6 155/63(122) Paced 0 (11) 9(A) , No pain 15:26:12 69 14 97 39.1 156/70(114) Paced 0 (11) 9(A) , No pain 15:30:38 69 18 96 37.6 153/67(118) Paced 0 (11) 9(A) , No pain 15:35:13 70 25 98 37.6 160/72(119) Paced 0 (11) 9(A) , No pain 15:39:51 77 21 97 36 161/65(119) Paced 0 (11) 9(A) , No pain 15:45:21 71 13 98 41.3 148/61(114) Paced 0 (11) 9(A) , No pain 15:50:43 93 14 99 39.1 145/69(107) Paced 0 (11) 10(A) , No pain 15:56:06 61 18 99 33.8 138/70(107) Paced 0 (11) 10(A) , No pain 16:01:22 66 28 99 36 144/69(111) Paced 0 (11) 10(A) , No pain 16:05:52 80 13 98 33.8 153/71(106) Paced 0 (11) 10(A) , No pain Medications Time Medication Route Dose Verified Delivered Reason Notes Effectiv eness by by 14:20:09 Vancomycin I.V.P.B 1 g Hill Paulinaie used for [facility] Radu Leblanc rn procedure 14:34:22 Oxygen NC 2 Hill Gallardoie used for l/min [facility] Le[facility]anc rn procedure 14:34:31 Lidocaine added 20 ml Hill Alejandre for local 1% with Epi to [facility] anesthetic field MD ROBB 14:34:45 Bupivacaine S.Q. 10 ml Hill Alejandre for local 0.5% [facility] anesthetic MD ROBB 14:34:56 0.9% NaCl kvo Hill [place] Per ml/hr [facility] Radu Leblanc RN physician 14:35:19 Vancomycin Topical 1 g Hill Gallardoie used for Irrigation [facility] Radu Leblanc rn procedure 14:40:03 Versed I.V. 1 mg Hill Gallardoie for [facility] Radu Leblanc RN sedation 14:40:09 Fentanyl I.V. 50 Hill Gallardoie for mcg [facility] Radu Leblanc RN sedation 15:09:32 Versed I.V. 1 mg Hill Gallardoie for [facility] Radu Leblanc RN sedation 15:09:37 Fentanyl I.V. 50 [address] Gallardo[address] for mcg [facility] Radu Leblanc RN sedation 15:39:05 Versed I.V. 1 mg Hill Gallardoie for [facility] Radu Leblanc RN sedation Procedure Log Time Note 14:09:07 Julius Leblanc RN sent for patient. Start room use. 14:09:08 Time tracking: Regular hours 14:09:12 Plan of Care:Hemodynamics will remain stable., Cardiac rhythm will remain stable., Comfort level will be maintained., Respiratory function will remain adequate., Patient/ family verbilizes understanding of procedure., Procedure tolerated without complication., Recovers from procedure without complications.. 14:20:09 Vancomycin 1 g I.V.P.B was administered by Julius Leblanc RN; used for procedure; 14:20:32 Patient received from Pre/Post Procedure Room to CCL 3 Alert and oriented. Tansferred to table in Supine position. 14:20:35 Warm blankets applied, and mu hugger turned on for patient comfort. 14:20:35 Correct patient and procedure confirmed by team. 14:20:40 Signed procedure consent form obtained from patient. 14:20:56 ECG and BP/O2 sat monitors applied to patient. 14:21:05 Vital chart was started 14:21:11 Rhythm: paced 14:21:49 Full Disclosure recording started 14:22:00 H&P Date Dictated: 04/18/2017 Within 30 days and on chart., H&P Addendum completed by physician on day of procedure. (MUST COMPLETE FOR ALL OUTPATIENTS). 14:22:02 Pre-procedure instructions explained to patient. 14:22:04 Pre-op teaching completed and patient verbalized understanding. 14:22:07 Family in waiting room. 14:22:10 Patient NPO since Breakfast. 14:22:21 Patient allergic to Penicillins 14:22:28 Patient allergic to Sulfa drugs 14:22:35 Is the patient allergic to Iodine/contrast media? No. 14:22:38 Is patient on blood thinner?Yes 14:22:44 ACC The patient was administered the following blood thiners within the last 24 hours: ACCPlavix 14:23:11 Patient diabetic? Yes. 14:23:52 If diabetic: On Metformin? No 14:24:11 INSULIN DEPENDANT 14:24:42 Patient not . Patient is over age 55. 14:24:45 ----Pre-sedation anethsthesia assessment.---- 14:24:50 Previous problem with sedation/anesthesia? No ? 14:24:51 Snore? Yes 14:24:54 Sleep apnea? No 14:24:55 Deviated septum? No 14:24:56 Opens mouth fully? Yes 14:24:58 Sticks out tongue? Yes 14:25:00 Airway obstruction? No ? 14:25:14 Dentures? Yes IN TIGHT 14:25:25 IV patent on arrival in left wrist with 0.9% NaCl at KVO. 14:25:37 Left chest area was prepped with chlora-prep and draped in sterile fashion 14:27:20 Alarms reviewed by Olesya Llamas 14:28:02 Medtronic 5076-58 PPM Lead opened to sterile field. 14:28:27 Cautery Pushbutton Pencil opened to sterile field. 14:28:28 Immobilizer Sling Small opened to sterile field. 14:28:29 Mepilex Dressing opened to sterile field. 14:28:30 7Fr Safe Sheath opened to sterile field. 14:28:31 Cautery Tip Senior Java Programmer opened to sterile field. 14:29:27 3.0 Vicryl Single Pack [id number] opened to sterile field. 14:29:30 5.0 Monocryl PS3 [id number] opened to sterile field. 14:29:31 2.0 Ticron Multipack opened to sterile field. 14:32:55 Medtronic technical support representative NIKOLAI WILSON present for procedure. 14:34:22 Oxygen 2 l/min NC was administered by Julius Leblanc RN; used for procedure; 14:34:31 Lidocaine 1% with Epi 20 ml added to field was administered by Hill Henry MD; for local anesthetic; 14:34:39 Pre sharps counted by scrub and verified by RN: Sutures: 7 Sponges: 5 Stick needles: 1 Skin needles: 2 Blade: 1 Cautery: 1 14:34:45 Bupivacaine 0.5% 10 ml S.Q. was administered by Hill Henry MD; for local anesthetic; 14:34:46 Grounding pad site Left thigh. 14:34:56 0.9% NaCl kvo ml/hr was administered by Julius Lbelanc RN; Per physician; 14::56 Physician arrived 14::57 --------ALL STOP TIME OUT------ 14:34:57 Final Timeout: patient, procedure, and site verified with staff and physician. All members of the team are in agreement. 14:35:02 Left chest site verified by team. 14:35:19 Vancomycin Irrigation 1 g Topical was administered by Julius Leblanc RN; used for procedure; 14:35:39 Physical assessment completed. ASA score P 2 - A patient with mild systemic disease as per Tano Amador MD. 14:35:44 Sedation plan: IV Moderate Sedation Versed, Fentanyl 14:37:39 Sharps counted by scrub and verified by R.N. 14:38:37 Procedure started. 14:38:38 Lidocaine 1% w/epi to left subclavicular area by Tano Amador MD. 14:38:47 Bupivacaine 0.5% to left subclavicular area by Tano Amador MD. 14:38:59 Incision made to left subclavicular area. 14:40:03 Versed 1 mg I.V. was administered by Julius Leblanc RN; for sedation; 14:40:09 Fentanyl 50 mcg I.V. was administered by Julius Leblanc RN; for sedation; 14:47:34 Device pocket was reopened. 14:52:01 Terumo ANGLE 260cm glide wire opened to sterile field. 14:52:36 Left subclavian vein accessed with 7Fr Peel Away Sheath. 14:52:51 GLIDE WIRE ADVANCED 14:54:49 7 FR SHORT PEELAWAY SHEATH REMOVED 14:55:25 9Fr Safe Sheath opened to sterile field. 14:57:20 Ventricular lead inserted and advanced. 14:57:23 Peel-a-way sheath was split and removed. 15:09:02 LEAD REMOVED INTACT, UNABLE TO INSERT INTO RV 15:09:32 Versed 1 mg I.V. was administered by Julius Leblanc RN; for sedation; 15:09:37 Fentanyl 50 mcg I.V. was administered by Julius Leblanc RN; for sedation; 15:11:55 Left subclavian vein accessed with 7Fr Peel Away Sheath. 15:14:38 Ventricular lead inserted and advanced. 15:14:41 Peel-a-way sheath was split and removed. 15:25:29 SEVERAL ATTEMPTS TO INSERT LEAD INTO RV 15:32:48 CHOICE PT WIRE ADVANCED INTO LEAD FOR SUPPORT 15:35:43 SEVERAL ATTEMPTS TO INSERT LEAD INTO RV 15:39:05 Versed 1 mg I.V. was administered by Julius Leblanc RN; for sedation; 15:44:21 Ventricular lead tested. 15:45:25 Ventricular lead attachment was completed with 2-0 ticron. 15:48:20 OLD RV LEAD DISCONNECTED FROM DEVICE AND CAPPED. 15:48:37 Ventricular lead positioned. 15:49:02 PPM Dual was attached to lead(s) and inserted into pocket. 15:52:43 PPM Dual was inserted subcutaneously to left chest. 15:53:17 Generator was sutured in place with 2-0 ticron. 15:55:08 Subcutaneous closure was completed with 3-0 vicryl. 15:58:08 Skin closure was completed with 5-0 monocryl. 15:59:39 Procedure ended.(Physican Out) 16:01:19 Fluoroscopy time 20.60 minutes. 16::27 Fluoroscopy dose: 311.34 mGy 16:: Flurop Dose total: 311.34 16:02:33 Post sharps counted by scrub and verified by RN: Sutures: 7 Sponges: 10 Stick needles: 3 Skin needles: 2 Blade: 1 Cautery: 1 16:02:59 2 EXTRA STICK WERE OPENED TO FIELD DURING 16:03:22 5 MORE LAPS OPENED DURING 16:03:32 Insertion/operative site no bleeding no hematoma. 16:04:41 Post-op/insertion site Left Chest area dressed using a Mepilex dressing. 16:05:00 Post left subclavian vein:stable 16:05:08 Post-procedure physical assessment completed. ASA score P 2 - A patient with mild systemic disease as per Hill Henry MD. 16:05:14 Post procedure rhythm: paced 16:05:32 Estimated blood loss: 20 ml 16:05:37 Post procedure instruction explained to patient.Patient verbalizes understanding. 16:05:37 Patient needs reinforcement of post procedure teaching. 16:05:39 Procedure and supply charges have been captured, reviewed, submitted and are correct. 16:05:43 Vital chart was stopped 16:05:44 See physician's report for complete and final results. 16:05:49 Report given to PCU. 16:05:54 Patient transfered to PCU with Bed. 16:05:56 Procedure ended. 16:05:56 Full Disclosure recording stopped 16:06:59 End room use (Document Last) Device Usage Item Name Manufacture Quantity Catalog Hospital Part Current Minimal Lot# / Number Charge Number Stock Stock Serial# Code Medtronic Medtronic 1 5076-58 [id number] 5 5076-58 PPM Lead Cautery Microtek 1 [id number] [id number] [id number] 5 Pushbutton [employer] Pencil Immobilizer Cardinal 1 [id number] [id number] 5 Sling Small Health Mepilex Cardinal 1 [id number] 661908 687579 [id number] 5 Dressing Health 7Fr Safe Microtek 1 [id number] [id number] [id number] 10 Sheath [employer] Inc[employer] Cautery Tip Microtek 1 [id number] [id number] 5 Senior Java Programmer [employer] Inc[employer] 3.0 Vicryl Ethicon 1 [id number] 014109 [id number] 5 Single Pack [id number] 5.0 Ethicon 1 [id number] 626375 5 Monocryl PS3 [id number] 2.0 Ticron Ethicon 7 [id number] 58025 [id number] 5 Multipack Terumo Terumo 1 [id number] 982268 434915 5 ANGLE 260cm glide wire 9Fr Safe Microtek 1 [id number] [id number] 169998 [id number] 5 Sheath [employer] Inc[employer] Signature Audit [place] Stage Time Signature Unsigned Intra-Procedure 04/30/2017 Iglesia Rees 4:09:40 PM RT(R) (CV) Signatures Monitor : Iglesia Rees RT Signature : Date : Time : [place] [id number] [place] [address]
[~2017-04-30 10:39] MED LIST changes: +ISOSORBIDE MONO30 M1 PO; +LIPITOR80 MG PO; +TOPROL XL50 MG PO
[2017-04-30] MEDS ORDERED: VITAMIN D31000 UNI2 PO (11:27)
[2017-04-30] MEDS ORDERED: ASCORBIC ACID500 MG PO (11:28)
[2017-04-30 11:32] VITALS: BP 142/49; BMI 26.4
[2017-04-30 11:45] LABS: HEMATOCRIT 40.3 % (36.0-48.0); HEMOGLOBIN 13.6 g/dL (12-16); MCH 34.8 pg (26.0-34.0); MCHC 33.7 g/dL (31.0-37.0); MCV 103.1 fL (80.0-100.0); MEAN PLATELET VOLUME 9.9 fL (7.4-10.4); RBC 3.91 10x6/uL (4.00-5.40); RDW 12.6 % (11.5-14.5); WBC 7.2 10x3/uL (4.8-10.8)
[2017-04-30 11:54] LABS: ANION GAP 13.2 mmol/L (8-16); CALCIUM 9.3 mg/dL (8.5-10.1); CARBON DIOXIDE 26.9 mmol/L (21.0-32.0); CREATININE - SERUM 1.5 mg/dL (0.6-1.3); POTASSIUM - SERUM 4.1 mmol/L (3.5-5.1)
[2017-04-30 12:05] LABS: APTT 30.1 SECONDS (22.8-39.4); INR 0.98 (0.85-1.17); PROTIME 12.9 SECONDS (11.6-15.0)
[2017-04-30 18:48] VITALS: BP 138/64; BMI 26.4
[2017-04-30 21:28] VITALS: BP 156/52
[2017-05-01 02:07] VITALS: BP 129/43
[2017-05-01 05:40] VITALS: BP 125/52
[2017-05-01 06:32] VITALS: BMI 26.2
[2017-05-01 07:43] VITALS: BP 166/55
--- NOTE | 2017-05-02 13:46 | OP ---
PATIENT NAME: CON ANN MEDICAL RECORD: [id number] :36 LOCATION:D.CAT ADMISSION DATE: SURGEON: NADIA BRONSON MD DATE OF OPERATION: 04/30/2017 PROCEDURE: Lead portion of permanent pacemaker placement. DESCRIPTION OF PROCEDURE: This is a lead replacement for sensing lead in the RV. A pocket was made via Dr. Amador. It was quite difficult passing lead into the RV secondary to 5 previously he was spastic to the SVC to these lesions of the RV itself. After, when we crossed, we were able to place an active fixation lead under fluoroscopic guidance of the RV with thresholds down to 1, R waves up to 9. The old lead was then capped and the new lead was attached to the generator and the pocket was closed via Dr. Amador. IMPRESSION: Successful lead portion of permanent pacemaker placement, ICD. COMPLICATIONS: None. DISPOSITION: To the floor, stable. ESTIMATED BLOOD LOSS: Minimal. TRANSINT:[id number] Voice Confirmation ID: [id number] DOCUMENT ID: [id number] NADIA BRONSON MD at 1346 CC: [id number] DICTATION DATE: 04/30/17 1613 PUBLIC SAFETY OFFICER: 04/30/17 1631 DEP CLI 05/01/17 [id number] [place] [address]
--- NOTE | 2017-05-14 11:14 | OP ---
PATIENT NAME: CON ANN MEDICAL RECORD: [id number] :36 LOCATION:D.CAT ADMISSION DATE: SURGEON: SONYA ANDERSEN MD DATE OF OPERATION: 04/30/2017 PREOPERATIVE DIAGNOSES: 1. Malfunctioning defibrillator lead. 2. Coronary artery disease. 3. Sick sinus syndrome. 4. Hypertension. 5. Hyperlipidemia. 6. Diabetes mellitus. POSTOPERATIVE DIAGNOSES: 1. Malfunctioning defibrillator lead. 2. Coronary artery disease. 3. Sick sinus syndrome. 4. Hypertension. 5. Hyperlipidemia. 6. Diabetes mellitus. PROCEDURE: Left subclavian vein right ventricular lead placement with fluoroscopic interpretation. SURGEON: Sonya Andersen MD CO-SURGEON: Hill Henry MD REPORT OF OPERATION: The patient's left chest was prepped and draped in sterile fashion. A 20 mL of 1% lidocaine with epinephrine was infused into the surrounding tissue. A cutdown was made overlying the indwelling pacer defibrillator. We then eviscerated this mechanism out of the skin. The skin incision was actually quite low and we were able to tunnel up through the subcutaneous tissue of the superior aspect of the incision following the other leads. At this point, I had to access the left subclavian vein through a small puncture in the patient's left chest. A 0.035 Glidewire was needed to advance through the multiple leads, which were already in place. We were eventually able to get down into the patient's right ventricle. After multiple attempts, we were finally able to get the lead into position in the right ventricle. In order to do this, we had to place a 7-British extended sheath over the guidewire all the way into the right ventricle and then advance the lead through the sheath into position. At this point, Dr. Henry was able to fix the lead into good position. We then noted that it was working appropriately. The sheath and wire were removed. The pacemaker lead was then pulled through the subcutaneous tissue to the indwelling defibrillator pocket. The old lead was removed and the new lead was affixed to the defibrillator. The old lead was then capped off. We then sutured down the new lead with a 0 Ti-Cron and placed the defibrillator back into the subcutaneous pouch. This was sutured down to the pectoral fascia using another 0 Ti-Cron. We then irrigated out the wound with antibiotic solution. The subcutaneous tissues were reapproximated with interrupted 3-0 Vicryl, and the skin incisions were closed with subcutaneous 5-0 Monocryl. COMPLICATIONS: None. CONDITION: Stable. OPERATIVE REPORT [id number] CON ANN ANESTHESIA: Local MAC. BLOOD LOSS: Minimal. TRANSINT:[id number] Voice Confirmation ID: [id number] DOCUMENT ID: [id number] SONYA ANDERSEN MD at 1114 CC: [id number] DICTATION DATE: 04/30/17 1604 SAILING INSTRUCTOR: 04/30/17 1642 DEP CLI 05/01/17 [id number] [place] [address]
== END 2017-05-01 10:05 | disposition home or self-care (01) ==
LOC: D.CATH 10:39 → D.M2 16:27 → D.CATH 05-01 10:05
PROVIDERS: Internal Medicine Interventional Cardiology
DX: T82.110A Breakdown (mechanical) of cardiac electrode, initial encounter (principal); I25.10 Atherosclerotic heart disease of native coronary artery without angina pectoris; I49.5 Sick sinus syndrome; I10 Essential (primary) hypertension; E78.5 Hyperlipidemia, unspecified; E11.9 Type 2 diabetes mellitus without complications; Z01.812 Encounter for preprocedural laboratory examination

== ENCOUNTER 2018-10-01 11:36 | Emergency (ER) | payer MEDICARE, MEDICAID ==
[~2018-10-01] VITALS: Ht 152.4 cm; Wt 62.7 kg
[~2018-10-01 11:36] MED LIST changes: +ASCORBIC ACID500 MG PO; +VITAMIN D31000 UNI2 PO
[2018-10-01 11:39] VITALS: Ht 152.4 cm; Wt 62.7 kg
[2018-10-01] MEDS ORDERED: VITAMIN D10000 UNI1 PO (11:43)
[2018-10-01 14:37] LABS: BASOPHILS 0.4 % (0-2); EOSINOPHILS 1.9 % (0-7); HEMATOCRIT 43.5 % (36.0-48.0); HEMOGLOBIN 14.7 g/dL (12-16); IMMATURE GRANULOCYTES 0.1 % (0-5); LYMPHOCYTES 26.2 % (15-50); MCHC 33.8 g/dL (31.0-37.0); MCV 100.7 fL (80.0-100.0); MEAN PLATELET VOLUME 10.3 fL (7.4-10.4); MONOCYTES 7.1 % (2-11); NEUTROPHILS 64.3 % (40-80); PLATELET COUNT 191 10x3/uL (130-400); RBC 4.32 10x6/uL (4.00-5.40); RDW 12.2 % (11.5-14.5); WBC 8.5 10x3/uL (4.8-10.8)
[2018-10-01] MEDS ORDERED: BACLOFEN20 M1 PO (17:02)
[2018-10-01] MEDS ORDERED: VOLTAREN75 MG PO (17:02)
[2018-10-01 17:30] VITALS: BP 146/67
== END 2018-10-01 17:15 | disposition home or self-care (01) ==
LOC: D.ER 11:36
PROVIDERS: Emergency Medicine
DX: N64.4 Mastodynia (principal); M79.18 Myalgia, other site